=== PATIENT | male | born 1975 | race Caucasian/White ===

== ENCOUNTER 2016-12-01 23:37 | Emergency (ER) | payer OTHER ==
[~2016-12-01] VITALS: Ht 190.5 cm; Wt 124.7 kg
[2016-12-01 23:47] VITALS: BP 144/88
--- NOTE | 2016-12-02 00:02 | PHYS DOC ---
Past Medical History Past Medical History: No Pertinent History Past Surgical History: No Surgical History Alcohol Use: Heavy Additional Information: pt drinks 6 beers daily ( minimum) Drug Use: None Adult General Chief Complaint Chief Complaint: SORE THROAT HPI HPI Patient is a 41 year old male who presents ambulatory to the ED with a complaint of sore throat for 3 days. He thought he could wait it out but it just getting worse. It hurts to swallow but he can swallow. A friend gave him a few hydrocodone which was helping but now they are gone. Review of Systems Review of Systems HENT: As in history of present illness GI: Denies vomiting Allergies Allergies Allergies Coded Allergies Type Severity Reaction Last Updated Verified No Known Drug Allergies 12/01/16 No Physical Exam Physical Exam Constitutional: Well developed, well nourished, no acute distress, non-toxic appearance. Patient is handling his own secretions without difficulty at his voice does sound somewhat thick. HENT: Normocephalic, atraumatic, bilateral external ears normal, oropharynx moist, posterior palate and oropharynx has diffuse redness, swelling, tonsillar enlargement bilaterally, tonsillar exudates bilaterally, uvula is midline, nose normal. [] Eyes: conjunctiva normal, no discharge. [] Neck: Normal range of motion, no stridor. [] Skin: Warm, dry, no erythema, no rash. [] Extremities: No tenderness, no cyanosis, no clubbing, ROM intact, no edema. [] Neurologic: Alert and oriented X 3, normal motor function, normal sensory function, no focal deficits noted. [] Current Patient Data Vital Signs Vital Signs Date Time Temp Pulse Resp B/P (MAP) Pulse Ox O2 Delivery O2 Flow Rate FiO2 12/01/16 23:47 98.2 89 18 144/88 (106) 96 Room Air 98.2 EKG EKG [] Radiology/Procedures Radiology/Procedures [] Course & Med Decision Making Course & Med Decision Making Pertinent Labs and Imaging studies reviewed. (See chart for details) Rapid strep positive. Patient prefers a penicillin shot. See instructions for plan. [] Dragon Disclaimer Dragon Disclaimer This electronic medical record was generated, in whole or in part, using a voice recognition dictation system. Departure Departure Impression: Primary Impression: Strep pharyngitis Disposition: HOME, SELF-CARE Condition: STABLE Patient Instructions: Strep Throat, [id number] Additional Instructions: Rest at home for 24 hours. Drink plenty of fluids. For pain, ibuprofen 800 mg every 6-8 hours. If needed for more severe pain, [place] as prescribed. This is an opiate, not while driving. Scripts Hydrocodone/Apap 5-325 (NORCO 5-325 TABLET) 1 Each Tablet 1-2 TAB PO Q4-6HRS for sore throat, #10 TAB Prov: ANIKA MART MD 12/02/16 ANIKA MART MD Dec 02, 2016 00:02
[2016-12-02] MEDS ORDERED: HYDR-971 PO ×2 (00:29→20:52)
[2016-12-02] MEDS ORDERED: PENICILLIN G BENZATHINE LA 1,200,000 UNIT/2 ML DISP.SYRIN. IM ONE (00:45)
[2016-12-02 07:52] LABS: NEGATIVE OBC STREP NEG; POSITIVE OBC STREP POS
[2016-12-02] MEDS ORDERED: IBUP-1007 PO (20:52)
[2016-12-02] MEDS ORDERED: PRED50TA PO (20:52)
== END 2016-12-02 00:49 | disposition home or self-care (01) ==
LOC: ER 23:37
DX: J02.0 Streptococcal pharyngitis (principal); F10.10 Alcohol abuse, uncomplicated
CPT/HCPCS: 87880; 96372; 99283; J0561; 90471

== ENCOUNTER 2016-12-02 18:29 | Emergency (ER) | payer OTHER ==
[~2016-12-02] VITALS: Ht 190.5 cm; Wt 124.7 kg
[~2016-12-02 18:29] MED LIST: HYDR-971 PO
[2016-12-02] MEDS ORDERED: DEXAMETHASONE SOD PHOS 4 MG/ML VIAL IV ONE (19:30)
[2016-12-02] MEDS ORDERED: ONDANSETRON PF 4 MG/2 ML VIAL. IV ONE (19:30)
[2016-12-02] MEDS ORDERED: KETOROLAC 15 MG/ML VIAL. IV ONE (19:30)
[2016-12-02] MEDS ORDERED: IV NORMAL SALINE 1000ML BAG 1,000 ML IV ONE (19:30)
[2016-12-02 19:49] LABS: CALCIUM 9.1 mg/dL (8.5-10.1); GFR 81.9; POTASSIUM 3.7 mmol/L (3.5-5.1)
[2016-12-02 19:59] LABS: ALBUMIN 3.2 g/dL (3.4-5.0); ALBUMIN/GLOBULIN RATIO 0.7 (1.0-1.7); TOTAL BILIRUBIN 0.7 mg/dL (0.2-1.0); TOTAL PROTEIN 7.5 g/dL (6.4-8.2)
[2016-12-02] MEDS ORDERED: IBUP-1007 PO (20:52)
[2016-12-02] MEDS ORDERED: PRED50TA PO (20:52)
[2016-12-02] MEDS ORDERED: HYDR-971 PO (20:52)
--- NOTE | 2016-12-02 20:52 | PHYS DOC ---
Past Medical History Past Medical History: No Pertinent History Past Surgical History: No Surgical History Additional Past Surgical Histo: Tendens sewn together in R hand, vasectomy Additional Information: Quit 7 years ago Alcohol Use: Heavy Drug Use: None Adult General Chief Complaint Chief Complaint: SORE THROAT HPI HPI Patient is a 41 year old gentleman who presents here today for reevaluation of this sore throat. Patient was seen and evaluated here yesterday was given a shot of penicillin however patient reports today his throat still hurts and is been unable to eat or drink anything. Patient has any fevers shakes chills nausea vomiting diarrhea chest pain shortness of breath. Patient reports his left ear does hurt. Patient reports is able tolerate his secretions. Patient reports she has taken 7 out of 10 Lortabs were prescribed for him as directed. Patient has no other past medical history. Review of systems: Constitutional: Denies fever or chills [] Eyes: Denies change in visual acuity, redness, or eye pain [] All other review systems are negative except as documented in the history of present illness portion. Physical exam: Constitutional: Well developed, well nourished, no acute distress, non-toxic appearance. [] HENT: Normocephalic, atraumatic, bilateral external ears normal, oropharynx moist oropharynx reveals bilateral exudates with swelling of his tonsils left greater than right. Tonsils are not kissing. Patient has no trismus. Patient's voice is normal without any hot potato/muffled voice. Patient's uvula is midline there is no evidence of peritonsillar abscess on exam. There is no evidence of abscess of the muscles of mastication. There is no airway compromise. No stridor. Eyes: PERRLA, EOMI, conjunctiva normal, no discharge. [] Neck: Normal range of motion, no tenderness, supple, no stridor. [] Bilateral submandibular lymphadenopathy left greater than right Cardiovascular:Heart rate regular rhythm, tachycardic to 105 Lungs & Thorax: Bilateral breath sounds clear to auscultation [] Abdomen: Bowel sounds normal, soft, no tenderness, no masses, no pulsatile masses. [] Skin: Warm, dry, no erythema, no rash. [] Back: No tenderness, no CVA tenderness. [] Extremities: No tenderness, no cyanosis, no clubbing, ROM intact, no edema. [] Neurologic: Alert and oriented X 3, normal motor function, normal sensory function, no focal deficits noted. [] Psychologic: Affect normal, judgement normal, mood normal. [] Patient's ER workup was significant for normal BMP. Patient has no evidence of significant dehydration. Patient speaks membranes were moist. Patient was given a liter of normal saline the ED Toradol and Decadron to assist with her symptoms. Patient be sent home with a prescription for Lortab 10 tablets to help with the pain. Patient reports these almost without any cell having severe pain. Patient will also be given a prescription for ibuprofen 800 mg to assist him. I have instructed the patient that it is not uncommon for throat to her for approximately 2-3 days after the injection of penicillin that it would take a little longer and that he needs to be patient however the patient does appear to be reliable and upfront regarding his pain and the symptoms Lortab that I do not think of be inappropriate to him another prescription. Assessment and plan: Dehydration, strep pharyngitis, intractable pain secondary to strep pharyngitis. Current Medications Current Medications Current Medications Medications (Trade) Dose Ordered Sig/Raissa Start Time Stop Time Status Last Admin Dose Admin Dexamethasone Sodium Phosphate (Decadron) 4 mg 1X ONCE 12/02/16 19:30 12/02/16 19:31 DC 12/02/16 19:40 4 MG Ketorolac Tromethamine (Toradol) 30 mg 1X ONCE 12/02/16 19:30 12/02/16 19:31 DC 12/02/16 19:40 30 MG Ondansetron HCl (Zofran) 4 mg 1X ONCE 12/02/16 19:30 12/02/16 19:31 DC 12/02/16 19:40 4 MG Sodium Chloride 1,000 ml @ 1,000 mls/hr 1X ONCE 12/02/16 19:30 12/02/16 20:29 DC 12/02/16 19:40 1,000 MLS/HR Allergies Allergies Allergies Coded Allergies Type Severity Reaction Last Updated Verified No Known Drug Allergies 12/01/16 No Current Patient Data Vital Signs Vital Signs Date Time Temp Pulse Resp B/P (MAP) Pulse Ox O2 Delivery O2 Flow Rate FiO2 12/02/16 18:38 98.2 101 22 124/61 (82) 97 Room Air 98.2 Lab Values Laboratory Tests Test 12/02/16 19:33 Sodium Level 139 mmol/L (136-145) Potassium Level 3.7 mmol/L (3.5-5.1) Chloride Level 103 mmol/L (98-107) Carbon Dioxide Level 27 mmol/L (21-32) Anion Gap 9 (6-14) Blood Urea Nitrogen 11 mg/dL (8-26) Creatinine 1.0 mg/dL (0.7-1.3) Estimated GFR (Cockcroft-Gault) 81.9 BUN/Creatinine Ratio 11 (6-20) Glucose Level 102 mg/dL (70-99) H Calcium Level 9.1 mg/dL (8.5-10.1) Total Bilirubin 0.7 mg/dL (0.2-1.0) Aspartate Amino Transferase (AST) 20 U/L (15-37) Alanine Aminotransferase (ALT) 32 U/L (16-63) Alkaline Phosphatase 82 U/L (46-116) Total Protein 7.5 g/dL (6.4-8.2) Albumin 3.2 g/dL (3.4-5.0) L Albumin/Globulin Ratio 0.7 (1.0-1.7) L Laboratory Tests 12/02/16 19:33 EKG EKG [] Radiology/Procedures Radiology/Procedures [] Course & Med Decision Making Course & Med Decision Making Pertinent Labs and Imaging studies reviewed. (See chart for details) [] Dragon Disclaimer Dragon Disclaimer This electronic medical record was generated, in whole or in part, using a voice recognition dictation system. Departure Departure Impression: Primary Impression: Strep pharyngitis Additional Impression: Dehydration Disposition: 01 HOME, SELF-CARE Condition: IMPROVED Referrals: NO PCP (PCP) Patient Instructions: Strep Throat Scripts Prednisone (PREDNISONE) 50 Mg Tablet 1 TAB PO DAILY, #3 TAB Prov: TELLY BROCK MD 12/02/16 Hydrocodone/Apap 5-325 (NORCO 5-325 TABLET) 1 Each Tablet 1 TAB PO QID Y for PAIN, #10 TAB Prov: TELLY BROCK MD 12/02/16 Ibuprofen (IBUPROFEN) 600 Mg Tablet 600 MG PO PRN Q6HRS Y for PAIN, #20 TAB Prov: TELLY BROCK MD 12/02/16 Problem Qualifiers TELLY BROCK MD Dec 02, 2016 20:52
[2016-12-02 21:02] VITALS: BP 106/65
== END 2016-12-02 21:20 | disposition home or self-care (01) ==
LOC: ER 18:29
DX: J02.0 Streptococcal pharyngitis (principal); E86.0 Dehydration; F10.10 Alcohol abuse, uncomplicated; Z87.891 Personal history of nicotine dependence
CPT/HCPCS: 36415; 80053; 96361; 96374; 96375; 99285; J1100; J1885; J2405; J7030

== ENCOUNTER 2017-01-30 22:20 | Emergency (ER) | payer OTHER ==
[~2017-01-30] VITALS: Ht 193 cm; Wt 124.7 kg
[~2017-01-30 22:20] MED LIST changes: +IBUP-1007 PO; +PRED50TA PO
[2017-01-30 22:30] VITALS: BP 151/93
[2017-01-30] MEDS ORDERED: PENICILLIN G BENZATHINE LA 1,200,000 UNIT/2 ML DISP.SYRIN. IM ONE (23:00)
--- NOTE | 2017-01-30 23:00 | PHYS DOC ---
Past Medical History Past Medical History: No Pertinent History Past Surgical History: Other Additional Past Surgical Histo: Tendon repair right hand; vasectomy Alcohol Use: Heavy Drug Use: None Adult General Chief Complaint Chief Complaint: SORE THROAT HPI HPI Patient is a 41 year old male presents to the emergency department with a one- day history of sore throat. Patient states approximately 2 months ago he had a strep infection. He states he has been well since that time. He developed a sore throat yesterday. No fever, no chills, no headache, no nausea, no vomiting. Review of Systems Review of Systems Constitutional: Denies fever or chills [] Eyes: Denies change in visual acuity, redness, or eye pain [] HENT: Sore throat Respiratory: Denies cough or shortness of breath [] Cardiovascular: No additional information not addressed in HPI [] GI: Denies abdominal pain, nausea, vomiting, bloody stools or diarrhea [] : Denies dysuria or hematuria [] Musculoskeletal: Denies back pain or joint pain [] Integument: Denies rash or skin lesions [] Neurologic: Denies headache, focal weakness or sensory changes [] Endocrine: Denies polyuria or polydipsia [] Current Medications Current Medications Current Medications Medications (Trade) Dose Ordered Sig/Raissa Start Time Stop Time Status Last Admin Dose Admin Penicillin G Benzathine (Bicillin L-A) 1,200,000 unit 1X ONCE 01/30/17 23:00 01/30/17 23:01 Allergies Allergies Allergies Coded Allergies Type Severity Reaction Last Updated Verified No Known Drug Allergies 12/01/16 No Physical Exam Physical Exam Constitutional: Well developed, well nourished, no acute distress, non-toxic appearance. [] HENT: Normocephalic, atraumatic, bilateral external ears normal, oropharynx moist, posterior pharynx erythematous with exudate on bilateral tonsils, uvula is midline. There is no tonsillar swelling., no oral exudates, nose normal. [] Eyes: PERRLA, EOMI, conjunctiva normal, no discharge. [] Neck: Normal range of motion, no tenderness, supple without lymphadenopathy., no stridor. [] Cardiovascular:Heart rate regular rhythm, no murmur [] Lungs & Thorax: Bilateral breath sounds clear to auscultation [] Abdomen: Bowel sounds normal, soft, no tenderness, no masses, no pulsatile masses. [] Skin: Warm, dry, no erythema, no rash. [] Back: No tenderness, no CVA tenderness. [] Extremities: No tenderness, no cyanosis, no clubbing, ROM intact, no edema. [] Neurologic: Alert and oriented X 3, normal motor function, normal sensory function, no focal deficits noted. [] Psychologic: Affect normal, judgement normal, mood normal. [] Current Patient Data Vital Signs Vital Signs Date Time Temp Pulse Resp B/P (MAP) Pulse Ox O2 Delivery O2 Flow Rate FiO2 01/30/17 22:30 98.4 102 18 98 Room Air 98.4 EKG EKG [] Radiology/Procedures Radiology/Procedures [] Course & Med Decision Making Course & Med Decision Making Pertinent Labs and Imaging studies reviewed. (See chart for details) []Strep positive. Patient see Bicillin LA 1.2 million units IM in the emergency department. He received dexamethasone 40 mg by mouth in the emergency department. He will be discharged with use of ibuprofen and Tylenol over-the- counter. He's return to the emergency department his symptoms or concerns or worsening of current condition. Dragon Disclaimer Dragon Disclaimer This electronic medical record was generated, in whole or in part, using a voice recognition dictation system. Departure Departure Impression: Primary Impression: Strep pharyngitis Disposition: 01 HOME, SELF-CARE Condition: STABLE Referrals: NO PCP (PCP) [facility] Patient Instructions: Strep Throat Additional Instructions: Ibuprofen and Tylenol [id number] as labeled and is indicated for symptom management. Salt water gargles. BECKA CRUZ APRN Jan 30, 2017 23:00
[2017-01-30] MEDS ORDERED: DEXAMETHASONE SOD PHOS 20 MG/5 ML VIAL. PO ONE (23:15)
[2017-01-31 07:32] LABS: NEGATIVE OBC STREP NEG; POSITIVE OBC STREP POS
== END 2017-01-30 23:14 | disposition home or self-care (01) ==
LOC: ER 22:20
DX: J02.0 Streptococcal pharyngitis (principal)
CPT/HCPCS: 87880; 96372; 99283; J0561; J1100